=== PATIENT | female | born 1955 | race Caucasian/White ===

== ENCOUNTER 2024-11-03 17:19 | Emergency (ER) | payer OTHER, MEDICARE ==
[~2024-11-03] VITALS: Ht 170.2 cm; Wt 84.1 kg
[2024-11-03] MEDS: HYDROcodone/acetaminophen 10/325mg tab PO STA (17:50)
--- NOTE | 2024-11-03 18:04 | RADIOLOGY REPORT ---
CLINICAL INDICATION: WRIST PAIN RIGHT TECHNIQUE: 3-view right wrist DI WRIST, COMPLETE (3VW MIN) Comparison: None FINDINGS/IMPRESSION: : Comminuted fracture seen of the distal radius. Ulnar styloid process fracture Moderate degenerative changes of the base of the 1st metacarpal degenerative in nature IMPRESSION: 1. Fractures
--- NOTE | 2024-11-03 18:26 | Physician Documentation ---
History of Present Illness ~ Chief Complaint: Wrist pain Stated Complaint: FALL/ARM PAIN Time Seen by MD: 21:18 HPI Patient presents to the emergency room with chief complaint of right wrist pain. She was hiking in a [place] bed fell landing on her outstretched arm. She denies any elbow or shoulder pain. She denies having hit her head or any other injuries. Medication Reconciliation Allergies: Coded Allergies: No Known Allergies (Unverified , 11/03/24) Scheduled Lisinopril/Hydrochlorothiazide (Lisinopril-Hctz 10-12.5 mg Tab), 1 TAB PO DAILY, (Reported) Sertraline HCl (Sertraline HCl), 1 TAB PO DAILY, (Reported) Simvastatin (Simvastatin), 1 TAB PO HS, (Reported) Miscellaneous Medications Ciclesonide (Alvesco), (Reported) Review of Systems ROS All review of systems negative except as per HPI Physical Exam Vital Signs: Temperature: 98.9, Source: Temporal, Heart Rate: 93, Respiratory Rate: 18, BP: 174/83, Pulse Oximetry: 99, Weight: 84.090 Oxygen Flow Rate: 0 Physical Exam General: Patient is awake, alert, oriented x4 in no acute distress and well appearing.~ Head: Normocephalic and atraumatic. Eyes: Conjunctival normal. EOMI. PERRL. ENT: Mucous membranes moist. Neck: Supple, trachea is midline. Chest: Clear to auscultation bilaterally without rales, rhonchi, or wheezes. There is no accessory muscle use or retractions. Cardiac: RRR without murmurs, gallops, or rubs. Extremities: Left upper extremity normal, right upper extremity with deformity to right wrist. Good capillary refill, no tenderness with manipulation of elbow or right shoulder. Procedures Procedures Hematoma block with reduction of right wrist: Status post informed verbal consent 8 cc of lidocaine with epinephrine administered to patient's deformity on her right wrist. Patient had good anesthesia status post hematoma block. Traction on patient's deformity performed with better alignment and reduction of deformity seen on wrist. Patient was then placed in splint. She was then placed in his sling. Patient tolerated procedure well without complication. She has good capillary refill status post splint placement. Total time of procedure 10 minutes. Progress Results/Orders Results/Orders Orders - SAMY VASQUEZ MD Ortho Orders (11/03/24 21:26) * Arm Sling To Be Placed Overn (11/03/24 21:26) Completed Orders - SAMY VASQUEZ MD Ondansetron Disint. Tablet (Zofran Odt T (11/03/24 21:25) Naproxen Tablet (Naprosyn Tablet) (11/03/24 21:25) Acetaminophen 325mg Tablet (Tylenol Tabl (11/03/24 21:25) Lidocaine 1% W/Epi 1:100,000 (Xylocaine (11/03/24 21:25) Medications Received in ER Medications (Trade) Dose Ordered Sig/Antony Route PRN Reason Start Time Stop Time Status Last Admin Dose Admin ([place] 10/325mg tab) 1 tab ONCE STAT PO 11/03/24 17:44 11/03/24 17:45 DC 11/03/24 17:50 1 TAB (Zofran ODT tablet) 4 mg ONCE ONCE PO 11/03/24 21:25 11/03/24 21:26 DC 11/03/24 21:39 4 MG (Naprosyn tablet) 500 mg ONCE ONCE PO 11/03/24 21:25 11/03/24 21:26 DC 11/03/24 21:40 500 MG (Tylenol tablet) 650 mg ONCE ONCE PO 11/03/24 21:25 11/03/24 21:32 DC 11/03/24 21:40 650 MG Vital Signs 11/03/24 11/03/24 11/03/24 11/03/24 17:38 17:50 19:31 19:34 Temp 98.9 98.2 Pulse 93 86 Resp 18 18 16 18 B/P (MAP) 174/83 165/82 (109) Pulse Ox 99 99 O2 Flow Rate 0 11/03/24 11/03/24 20:08 21:04 Pulse 85 84 Resp 16 18 B/P (MAP) 156/79 (104) 155/62 (93) Pulse Ox 99 99 O2 Flow Rate 0 Medical Decision Making Findings Patient presents to the emergency room with right wrist pain as per HPI. Differentials include but are not limited to fractures, dislocations, soft tissue injury, hematoma. X-ray confirms fracture. Patient is status post hematoma block, traction/reduction and splint placement in his neurovascularly intact status post splint placement. We will refer her to orthopedist. Ibuprofen and Tylenol for pain I will provide additional pain medications. ER precautions regarding uncontrolled pain discussed. Departure Disposition: HOME / SELF CARE / HOMELESS Impression: Primary Impression: Wrist fracture, closed Condition: Fair Discharge Instructions: Wrist Fracture Treated With Immobilization Additional Instructions: In addition to ibuprofen and Tylenol I have provided pain medication. Keep wrist elevated. Call orthopedist tomorrow to arrange for follow up Referrals: NO PRIMARY CARE PROVIDER (PCP) MARY LOU SANTANA Jr., MD Prescriptions Hydrocodone Bit/Acetaminophen 5/325 MG ([place] 5/325 MG) 5 Mg/325 Mg Tablet 1-2 TAB PO Q4-6 hours PRN for pain, #20 TAB Prov: SAMY VASQUEZ MD 11/03/24 Education Educated: Patient, Family Educated regarding: diagnosis, treatment, need for follow up Additional Comment Medical Screen Exam History: This 69-year-old female presents with right wrist pain after a fall on outstretched hand, patient reports no loss of feeling in right hand. Patient reports minor pain to right knee otherwise reports no other injuries Exam: VITALS: Reviewed and as above. GENERAL: Alert, nontoxic appearing, no apparent distress. RESPIRATORY: No increased work of breathing, no respiratory distress, speaking in full clear sentences CV: Brisk capillary refill to right fingers MUSCULOSKELETAL: Right wrist obvious deformity with swelling, tender to palpation, range of motion intact in right fingers SKIN: Intact with no ecchymosis to right wrist NEURO: Sensation intact in right fingers MSE performed in triage and patient returned to ED lobby by nursing staff The note accurately reflects work and decisions made by me.JOSY Welsh 11/03/24 18:26 Signature Scribe Signature: No scribe Attestation: The note accurately reflects work and decisions made by me.Samy Vasquez MD 11/03/24 22:58 ZEESHAN CH Nov 03, 2024 18:26 SAMY VASQUEZ MD Nov 03, 2024 22:59
[2024-11-03 19:34] VITALS: TEMP 98.2
[2024-11-03] MEDS ORDERED: SERT-433 PO (19:37)
[2024-11-03] MEDS ORDERED: CICL6.1H4 (19:37)
[2024-11-03] MEDS ORDERED: LISI1TAB49 PO (19:37)
[2024-11-03] MEDS ORDERED: SIMV-45 PO (19:37)
[2024-11-03] MEDS: LIDOcaine 1% W/epiNEPHrine 1:100,000 20ml vial IJ ONE (21:00)
[2024-11-03] MEDS: ondansetron 4mg rapidly disintigrating tab PO ONE (21:39)
[2024-11-03] MEDS: naproxen 500mg tablet PO ONE (21:40)
[2024-11-03] MEDS: acetaminophen 325mg tablet PO ONE (21:40)
[2024-11-03] MEDS ORDERED: HYDR-3965 PO (22:57)
[2024-11-03 23:00] VITALS: BP 137/69; PULSE 82; RESP 16; O2SAT 98
== END 2024-11-03 23:19 | disposition home or self-care (01) ==
LOC: ER 17:20
DX: S52.611A Displaced fracture of right ulna styloid process, initial encounter for closed fracture (principal); S52.501A Unspecified fracture of the lower end of right radius, initial encounter for closed fracture; W06.XXXA Fall from bed, initial encounter; Y93.01 Activity, walking, marching and hiking; Y92.89 Other specified places as the place of occurrence of the external cause; Y99.8 Other external cause status
CPT/HCPCS: 25605; 73110; 99285; A4565; A6446; A6449